=== PATIENT | female | born 1995 | race Caucasian/White ===

== ENCOUNTER 2024-01-07 10:00 | Outpatient (CLI) | payer OTHER | END 2024-01-07 11:17 | disposition home or self-care (01) | LOC: NST 10:00 | PROVIDERS: ATTEND Obstetrics & Gynecology | DX: Z34.83 Encounter for supervision of other normal pregnancy, third trimester (principal) ==

== ENCOUNTER 2024-02-04 09:38 | Inpatient (IN) | payer OTHER ==
[~2024-02-04] VITALS: Ht 152.4 cm; Wt 3.2 kg
[2024-02-04 08:34] VITALS: BP 104/71
[~2024-02-04 09:38] MED LIST: CHILDREN'S ASPI81 MG PO; LEVOTHYROXINE25 MCG PO; LOVENOX40 MG/0.4 SUBCUTANEO; SYNTHROID50 MCG PO; VITATRUE COMBO1 EACH PO
[2024-02-04 10:38] VITALS: BP 104/71
[2024-02-04] MEDS ORDERED: RINGERS SOLUTION,LACTATED 1,000 ML IV SCH ×2 (10:45→16:15)
[2024-02-04] MEDS ORDERED: CEFAZOLIN SODIUM 1,000 MG VIAL IV SCH (11:30)
[2024-02-04 11:57] VITALS: BP 101/69; O2SAT 98
[2024-02-04 12:22] LABS: HEMOGLOBIN 11.1 g/dL (12.0-15.00); MEAN CELL VOLUME 74.6 fL (80.00-100.00); MEAN CORPUSCULAR HEMOGLOBIN 23.7 pg (27.00-32.0); MEAN CORPUSCULAR HGB CONC 31.8 g/dl (32.0-36.0); PLATELET COUNT 258 K/uL (150-450); RED BLOOD COUNT 4.69 M/uL (4.00-6.00); RED CELL DISTRIBUTION WIDTH 20.8 % (11.5-14.5)
[2024-02-04 12:39] LABS: ALBUMIN 2.4 gm/dL (3.4-5.0); BILIRUBIN TOTAL 0.49 mg/dL (0.3-1.2); CALCIUM 9.4 mg/dL (8.5-10.1); CREATININE SERUM 0.42 mg/dL (0.55-1.02); GFR 178.38; GLOBULINA 4.2 G/DL (2.4-3.5); POTASSIUM 4.22 mEq/L (3.5-5.1); TOTAL PROTEIN 6.6 gm/dL (6.4-8.2)
[2024-02-04 12:42] LABS: INR 0.98; PARTIAL THROMBOPLASTIN TIME 28.5 SECONDS (22.0-34.0); PROTHROMBIN TIME 10.7 SECONDS (9.0-11.5)
[2024-02-04] MEDS ORDERED: ERYTHROMYCIN BASE OPHT 1GM EACH TUBE OP ONE ×2 (14:15→18:15)
[2024-02-04] MEDS ORDERED: OXYTOCIN 10 UNITS/ML VIAL IV ONE ×2 (14:15→18:15)
[2024-02-04 15:19] VITALS: BP 115/77
[2024-02-04] MEDS ORDERED: OXYTOCIN 1,000 ML IV SCH (16:15)
[2024-02-04] MEDS ORDERED: MORPHINE SULFATE 4 MG/ML CARTRIDGE IV PRN (16:15)
[2024-02-04] MEDS ORDERED: SIMETHICONE 125 MG CAPSULE PO SCH (17:00)
[2024-02-04] MEDS ORDERED: ONDANSETRON HCL 2 MG/ML VIAL IV SCH (18:00)
[2024-02-04] MEDS ORDERED: KETOROLAC TROMETHAMINE 30 MG VIAL IV SCH (18:00)
[2024-02-04] MEDS ORDERED: ACETAMINOPHEN 500 MG GEL..CAP PO SCH (18:00)
[2024-02-04] MEDS ORDERED: MORPHINE SULFATE 4 MG/ML VIAL IV ONE (18:50)
[2024-02-04 21:54] VITALS: BP 104/66
[2024-02-05 00:59] VITALS: BP 110/78
[2024-02-05] MEDS ORDERED: GABAPENTIN 300 MG CAPSULE PO SCH (01:00)
[2024-02-05 07:02] LABS: HEMATOCRIT 26.4 % (36.0-45.00); MEAN CELL VOLUME 75.1 fL (80.00-100.00); MEAN CORPUSCULAR HEMOGLOBIN 24.5 pg (27.00-32.0); MEAN CORPUSCULAR HGB CONC 32.6 g/dl (32.0-36.0); PLATELET COUNT 189 K/uL (150-450); RED BLOOD COUNT 3.51 M/uL (4.00-6.00); RED CELL DISTRIBUTION WIDTH 20.7 % (11.5-14.5)
[2024-02-05 07:07] LABS: HEMOGLOBIN 8.6 g/dL (12.0-15.00)
[2024-02-05] MEDS ORDERED: KETOROLAC TROMETHAMINE 10 MG TABLET PO SCH (08:00)
[2024-02-05] MEDS ORDERED: OxyCODONE HCL 5 MG TABLET (ROXICODONE) PO PRN (08:00)
[2024-02-05] MEDS ORDERED: ENOXAPARIN SODIUM 40 MG/0.4 ML SYRINGE SUBCUTANEO SCH (09:00)
[2024-02-05] MEDS ORDERED: DOCUSATE SODIUM 100MG CAP PO SCH (09:00)
[2024-02-05 10:18] VITALS: BP 114/70
[2024-02-05 16:20] VITALS: BP 111/69
[2024-02-06 01:32] VITALS: BP 100/66
[2024-02-06 05:25] VITALS: BP 106/75
[2024-02-06] MEDS ORDERED: LEVOTHYROXINE SODIUM 25 MCG TABLET PO SCH (06:00)
[2024-02-06 09:00] VITALS: BP 124/68
[2024-02-06 16:24] VITALS: BP 107/76
[2024-02-07] VITALS: BP 112/77
[2024-02-07 08:52] VITALS: BP 117/74
== END 2024-02-07 14:18 | disposition home or self-care (01) | DRG 788 ==
LOC: LDR 09:38 → OB/GYN 18:06
PROVIDERS: Obstetrics & Gynecology; ADMIT Obstetrics & Gynecology; ATTEND Obstetrics & Gynecology
PROC: 4A1HXCZ Monitoring of Products of Conception, Cardiac Rate, External Approach (ICD-10-PCS; 2024-02-04)
PROC: 10D00Z1 Extraction of Products of Conception, Low, Open Approach (ICD-10-PCS; principal; 2024-02-04 16:30)
DX: O34.211 Maternal care for low transverse scar from previous cesarean delivery (principal); Z3A.39 39 weeks gestation of pregnancy; Z37.0 Single live birth; Z20.822 Contact with and (suspected) exposure to COVID-19